=== PATIENT | male | born 1965 | race Caucasian/White ===

== ENCOUNTER 2016-08-05 22:55 | Inpatient (IN) | payer OTHER ==
--- NOTE | ~2016-08-05 | DS ---
Discharge Summary [facility] [address] [place]. [address] NAME: ALLIE BOURGEOIS : 61 STATUS : DIS IN PAT#: [id number] AGE: 51 ADM/REG DATE : 08/06/16 MR#: [id number] REPORT SERV DATE: 08/08/16 DICTATED BY: CHRIS GARCIA DATE: 08/07/16 REPORT STATUS : Draft TRANSCRIBED BY: MODL DATE: 08/07/16 ADMISSION DATE: 08/06/2016 DISCHARGE DATE: 08/07/2016 PRINCIPAL DIAGNOSIS: Hyponatremia due to water intoxication. SECONDARY DIAGNOSES: Hypertension, depression, history of seizure disorder, chronic pain disorder, benzodiazepine dependence. HISTORY OF PRESENT ILLNESS: Please see Dr. Hirsch's dictation 08/06/2016. HOSPITAL COURSE: Admitted with encephalopathy, found to have a sodium of 111 but no seizures. History revealed that the patient drinks 16 ounce water bottles every day while taking hydrochlorothiazide and an SSRI. His urine sodium was less than 10. His urine osmolality was less than 100. This was pathognomonic of water overdose. He was discontinued from the high water concentrations. He was given very low doses of normal saline, taken off hydrochlorothiazide, SSRI, and put on a fluid restriction. His sodium levels actually rapidly came up at approximately 0.5 to 1 millimoles per hour and actually was 131 on the morning of 08/07/2016. The patient felt well. No neurological symptoms. He wished to go home. I felt it was satisfactory to do so. He was released in satisfactory condition with diet as tolerated, activity as tolerated. Discontinue HCTZ and Prozac but continue his other therapies and instructions to drink less water. ANDRE/SUSAN Chris Garcia M.D. / [id number] CC: Adalid Mills
--- NOTE | ~2016-08-05 | HP ---
History And Physical [address] [place]. [address] NAME: ALLIE BOURGEOIS : 61 STATUS : ADM IN PAT#: [id number] AGE: 51 ADM/REG DATE : 08/06/16 MR#: [id number] REPORT SERV DATE: 08/06/16 DICTATED BY: KEYUR EARL DATE: 08/06/16 REPORT STATUS : Draft TRANSCRIBED BY: MODL DATE: 08/06/16 DATE OF ADMISSION: 08/06/2016 CHIEF COMPLAINT: A 51-year-old male, presenting with a primary complaint of abdominal pain, nausea, and decreased appetite, but also a critically low sodium of 111. HISTORY OF PRESENT ILLNESS: The patient's history was obtained through careful interview with the patient and daughter coupled with review of [facility] medical records. The patient for about a week has had a very poor appetite, occasional nausea with poor oral intake; he continues to drink water however. Then, on the evening leading up to admission, he developed increasing nausea and left anterior abdominal discomfort going in his lower quadrant, he describes it as "inside my belly" a sharp quality, up to 6/10 severity. No diarrhea. He has felt cold, but no fevers or chills. No lightheadedness. No confusion. No shortness of breath. No chest pain. No cough. No seizures. He does complain of chronic back pain. On questioning it is clear that patient drinks heavy amounts of mineral water compulsively. He buys cases of water from [employer] or other Supermarkets and will drink copious amount of free water compulsively every day, for example in the last 24 hours it has been confirm that the patient has gone through 16 separate 16 ounce bottles of free water during the 24- hour period of time. REVIEW OF SYSTEMS: Otherwise, a 14-point review of systems was obtained and was negative. PAST MEDICAL HISTORY: 1. COPD. 2. Congestive heart failure. 3. Hypertension. 4. Chronic pain management, on chronic narcotics. 5. Chronic anxiety, on chronic benzodiazepines. 6. A baseline hyponatremia with sodium measured between 125 and 134 in 2015. 7. Quite elevated ESR of 127 in April 2015. 8. T5 compression fracture. 9. Seizure disorder, on Keppra. PAST SURGICAL HISTORY: 1. Bilateral hip avascular necrosis requiring hip replacement. 2. Cholecystectomy. ALLERGIES: TO MORPHINE AND FENTANYL. History And Physical [address] [place]. [address] NAME: ALLIE BOURGEOIS : 61 STATUS : ADM IN PAT#: [id number] AGE: 51 ADM/REG DATE : 08/06/16 MR#: [id number] REPORT SERV DATE: 08/06/16 DICTATED BY: KEYUR EARL DATE: 08/06/16 REPORT STATUS : Draft TRANSCRIBED BY: SUSAN DATE: 08/06/16 SOCIAL HISTORY: Quit smoking. Quit drinking beer. He is . Lives alone. Has two daughters and one son lives in [place], [place]. FAMILY HISTORY: Significant for cancer. CURRENT MEDICATIONS: 1. Keppra 500 mg p.o. b.i.d. 2. Hydrochlorothiazide 25 mg p.o. daily. 3. Klonopin four times a day. 4. Oxycodone 15 mg p.o. four times a day. 5. Prozac. 6. Norvasc. 7. Primidone. 8. Atenolol. 9. Lisinopril. 10.Aspirin. 11.Omeprazole. 12.Multivitamins. PHYSICAL EXAMINATION: VITAL SIGNS: Temperature 97.2, pulse 62, blood pressure 103/57, respiratory rate 16, and O2 saturation 95% on room air. GENERAL: A pleasant, cooperative male, in no evidence of acute distress. HEENT: Pupils equal, round, and reactive to light. No conjunctival pallor. No scleral icterus. Nares are patent. Oropharynx is clear of obstruction. Mildly dry mucous membranes. NECK: Trachea midline. No thyromegaly. LYMPH: No cervical lymphadenopathy. No supraclavicular lymphadenopathy. RESPIRATORY: Clear to auscultation at bases. No wheezes, rales, or rhonchi. Normal respiratory effort. CARDIOVASCULAR: Regular rate and rhythm. No murmurs, rubs, or gallops. No extremity edema is appreciated. ABDOMEN: Despite his abdominal pain complaint, I do not appreciate any abdominal tenderness on examination. Nondistended abdomen. No hepatosplenomegaly. DERMATOLOGICAL: Warm and dry extremities. No pallor. No cyanosis. PSYCHIATRIC: Normal affect. Good mood. Alert and oriented x3. LABORATORY DATA: Sodium 111, potassium 3.3, chloride 72, bicarb 28, BUN 13, creatinine 1.1, and glucose 106. White blood cell count 8, hemoglobin 12, hematocrit 33, and platelets 256. Brain natriuretic peptide 40. Urinalysis negative for infection. History And Physical [address] [facility] [place]. [address] NAME: ALILE BOURGEOIS : 61 STATUS : ADM IN PAT#: [id number] AGE: 51 ADM/REG DATE : 08/06/16 MR#: [id number] REPORT SERV DATE: 08/06/16 DICTATED BY: KEYUR EARL DATE: 08/06/16 REPORT STATUS : Draft TRANSCRIBED BY: SUSAN DATE: 08/06/16 STUDIES: A CT scan of the abdomen and pelvis was read as being negative. ASSESSMENT AND PLAN: 1. Critically low sodium/hyponatremia. There are no neurological signs at this time. There is no history of beer potomania, but the patient does have a history consistent with a compulsive psychogenic polydipsia of free water having consumed for example 16 separate 16 ounce bottles of free water in the last 24 hours. I will check studies for SIADH as well. The patient also gives a history and shows signs of mild dehydration (though not too severe) so we will provide mild IV fluid resuscitation, otherwise place on water restriction now. I would also hold hydrochlorothiazide. 2. Abdominal pain. Negative CT scan of the abdomen. 3. History of extremely elevated ESR. Recheck an ESR. 4. Seizure disorder. Continue Keppra. 5. Chronic pain management. 6. Chronic benzodiazepine dependence. KPL/MODL Keyur Earl M.D. / [id number] CC: Adalid Andrade MD
[~2016-08-05 22:55] MED LIST: *UNABLE1; ADVIL PO; ASA5GR PO; ATEN100 PO; ATROVENTUD INH; DURA25 TOP; FOLIC PO; HYDROCHLOROT25 MG PO; KEPPRA500 PO; KLONO1 PO; LEVAQUIN750 MG PO; P20 PO; PERCOCET1 TA2 PO; PERCOCET1 TA4 PO; POTASSIUM OTC PO; PRILO PO; PRIM50B PO; PRIMIDONE 50 MG PO; PRIN20 PO; PROAIR HFA INH; PROVENTSOL INH; PROZAC PO; ROXICODONE15 MG PO; ROXICODONE30 MG PO; ZESTRIL20 MG PO; ZYP2 PO; [UNRECOGNIZED DRUG - OTHER] PO
[2016-08-05 23:41] LABS: BASOPHILS 0.4 %; BASOPHILS ABSOLUTE 0.03 10/3/uL (0.0-0.16); EOSINOPHILS 3.5 %; EOSINOPHILS ABSOLUTE 0.28 10/3/uL (0.0-0.53); ER CBC TAT 0 Hrs 03 Mins; HEMATOCRIT 33.1 % (40.0-51.0); HEMOGLOBIN 11.9 g/dL (13.6-17.8); IMMATURE GRANULOCYTES 0.1 %; IMMATURE GRANULOCYTES ABSOLUTE 0.01 10/3/uL (0.0-0.11); LYMPHOCYTES 14.9 %; MEAN PLATELET VOLUME 9.7 fL (9.2-13.0); MONOCYTES 8.6 %; MONOCYTES ABSOLUTE 0.69 10/3/uL (0.21-1.20); NEUTROPHILS 72.5 %; NEUTROPHILS ABSOLUTE 5.82 10/3/uL (2.02-8.40); PLATELET COUNT 256 10/3/uL (150-400); RED CELL COUNT 4.04 10/6/uL (4.7-6.1)
[2016-08-05 23:47] LABS: MANUAL DIFF NO %; MEAN CORPUSCULAR HEMOGLOB 29.5 pg (26.0-34.0); MEAN CORPUSCULAR VOLUME 81.9 fL (80-100); RBC DISTRIBUTION WIDTH 12.1 % (12.0-16.0)
[2016-08-05 23:54] LABS: BUN (BLOOD UREA NITROGEN) 13 MG/DL (6-23); CHLORIDE, SERUM 77 MMOL/L (96-112); CO2 (CARBON DIOXIDE) 28 MMOL/L (24-34); GFR AFRICAN AMERICAN 88 ML/MIN (>=60); GFR NON AFRICAN AMERICAN 76 ML/MIN (>=60); GLUCOSE, SERUM 106 MG/DL (60-99); POTASSIUM, SERUM 3.3 MMOL/L (3.5-5.3); SODIUM, SERUM 111 MMOL/L (135-148)
[2016-08-06 01:11] LABS: ALBUMIN 3.8 G/DL (3.5-5.0); ALKALINE PHOSPHATASE 98 U/L (45-117); BUN (BLOOD UREA NITROGEN) 13 MG/DL (6-23); CHLORIDE, SERUM 76 MMOL/L (96-112); CO2 (CARBON DIOXIDE) 28 MMOL/L (24-34); CREATININE 1.15 MG/DL (0.70-1.30); GFR AFRICAN AMERICAN 84 ML/MIN (>=60); GFR NON AFRICAN AMERICAN 72 ML/MIN (>=60); GLOBULIN 3.9 G/DL (2.5-4.1); GLUCOSE, SERUM 116 MG/DL (60-99); POTASSIUM, SERUM 3.1 MMOL/L (3.5-5.3); SGOT(AST) 30 U/L (5-40); SGPT(ALT) 27 U/L (5-65); TOTAL PROTEIN 7.7 G/DL (6.0-8.5)
[2016-08-06 01:12] LABS: SODIUM, SERUM 111 MMOL/L (135-148); TOTAL BILIRUBIN 0.9 MG/DL (0-1.2)
[2016-08-06 01:37] LABS: ASCORBIC ACID (UR NOT ORDER) NEG (NEG); BILIRUBIN, URINE NEGATIVE (NEG); ER URINALYSIS TAT 0 Hrs 00 Mins; KETONE, URINE NEGATIVE (NEG); LEUKOCYTE ESTERASE(NOT OR NEG (NEG); NITRITE (URINE) NEG (NEG); WBC (NOT ORDERED) (RFLEX) < 1 (0-5)
[2016-08-06] MEDS ORDERED: ZYP5 PO (03:44)
[2016-08-06] MEDS ORDERED: PROZAC PO (03:45)
[2016-08-06] MEDS ORDERED: NORV10 PO (03:45)
[2016-08-06] MEDS ORDERED: PRIM50B PO (03:46)
[2016-08-06] MEDS ORDERED: ATEN100 PO (03:47)
[2016-08-06] MEDS ORDERED: ASAB PO (03:47)
[2016-08-06] MEDS ORDERED: [UNRECOGNIZED DRUG - OTHER] (03:47)
[2016-08-06] MEDS ORDERED: ZESTRIL20 MG PO (03:48)
[2016-08-06] MEDS ORDERED: KEPPRA500 PO (03:48)
[2016-08-06] MEDS ORDERED: HYDROCHLOROT25 MG PO (03:49)
[2016-08-06] MEDS ORDERED: PRILO PO (03:49)
[2016-08-06 05:54] LABS: BASOPHILS 0.4 %; BASOPHILS ABSOLUTE 0.03 10/3/uL (0.0-0.16); EOSINOPHILS 4.9 %; EOSINOPHILS ABSOLUTE 0.35 10/3/uL (0.0-0.53); HEMATOCRIT 33.4 % (40.0-51.0); IMMATURE GRANULOCYTES 0.3 %; IMMATURE GRANULOCYTES ABSOLUTE 0.02 10/3/uL (0.0-0.11); LYMPHOCYTES 13.5 %; LYMPHOCYTES ABSOLUTE 0.97 10/3/uL (0.67-4.30); MEAN CORPUS HGB CONC 35.9 g/dL (32.0-36.0); MEAN CORPUSCULAR HEMOGLOB 29.5 pg (26.0-34.0); MEAN CORPUSCULAR VOLUME 82.1 fL (80-100); MEAN PLATELET VOLUME 10.6 fL (9.2-13.0); MONOCYTES 12.2 %; MONOCYTES ABSOLUTE 0.88 10/3/uL (0.21-1.20); NEUTROPHILS 68.7 %; NEUTROPHILS ABSOLUTE 4.96 10/3/uL (2.02-8.40); PLATELET COUNT 248 10/3/uL (150-400); RBC DISTRIBUTION WIDTH 12.4 % (12.0-16.0); RED CELL COUNT 4.07 10/6/uL (4.7-6.1); WHITE BLOOD CELLS 7.2 10/3/uL (4.5-10.5)
[2016-08-06 05:55] LABS: MANUAL DIFF NO %
[2016-08-06 06:24] LABS: A/G RATIO 0.9 (0.7-1.9); ALBUMIN 3.4 G/DL (3.5-5.0); BUN (BLOOD UREA NITROGEN) 11 MG/DL (6-23); CALCIUM, SERUM 8.1 MG/DL (8.5-10.4); CHLORIDE, SERUM 84 MMOL/L (96-112); CO2 (CARBON DIOXIDE) 24 MMOL/L (24-34); GFR AFRICAN AMERICAN 113 ML/MIN (>=60); GFR NON AFRICAN AMERICAN 97 ML/MIN (>=60); GLOBULIN 3.8 G/DL (2.5-4.1); GLUCOSE, SERUM 101 MG/DL (60-99); POTASSIUM, SERUM 3.1 MMOL/L (3.5-5.3); SGOT(AST) 31 U/L (5-40); SGPT(ALT) 24 U/L (5-65); TOTAL PROTEIN 7.2 G/DL (6.0-8.5)
[2016-08-06 06:29] LABS: ALKALINE PHOSPHATASE 86 U/L (45-117); SODIUM, SERUM 117 MMOL/L (135-148); TOTAL BILIRUBIN 0.4 MG/DL (0-1.2); ULTRASENSITIVE TSH 0.852 MCIU/ML (0.358-3.740)
[2016-08-06 06:32] LABS: INTERNATIONAL NORMAL RATI 0.9 UNITS (-); PARTIAL THROMBO TIME 36.5 SEC (22.5-37.2); PROTIME (NOT ORD) 12.5 SEC (12.0-14.5)
[2016-08-06 08:11] LABS: SED RATE 20 MM/HR (0-15)
[2016-08-06 10:45] LABS: BUN (BLOOD UREA NITROGEN) 10 MG/DL (6-23); CHLORIDE, SERUM 89 MMOL/L (96-112); CO2 (CARBON DIOXIDE) 27 MMOL/L (24-34); CREATININE 0.77 MG/DL (0.70-1.30); GFR AFRICAN AMERICAN 120 ML/MIN (>=60); GFR NON AFRICAN AMERICAN 104 ML/MIN (>=60); GLUCOSE, SERUM 110 MG/DL (60-99); SODIUM, SERUM 122 MMOL/L (135-148)
[2016-08-06 12:07] LABS: OSMOLALITY, URINE 102 MOSM/KG (50-1200); SODIUM, URINE 15 MEQ/L
[2016-08-06 18:00] LABS: BUN (BLOOD UREA NITROGEN) 9 MG/DL (6-23); CALCIUM, SERUM 8.5 MG/DL (8.5-10.4); CHLORIDE, SERUM 94 MMOL/L (96-112); CO2 (CARBON DIOXIDE) 29 MMOL/L (24-34); CREATININE 0.87 MG/DL (0.70-1.30); GFR AFRICAN AMERICAN 114 ML/MIN (>=60); GFR NON AFRICAN AMERICAN 99 ML/MIN (>=60); GLUCOSE, SERUM 108 MG/DL (60-99); POTASSIUM, SERUM 4.4 MMOL/L (3.5-5.3); SODIUM, SERUM 127 MMOL/L (135-148)
[2016-08-06 23:23] LABS: BUN (BLOOD UREA NITROGEN) 9 MG/DL (6-23); CALCIUM, SERUM 8.5 MG/DL (8.5-10.4); CHLORIDE, SERUM 97 MMOL/L (96-112); CO2 (CARBON DIOXIDE) 29 MMOL/L (24-34); CREATININE 0.85 MG/DL (0.70-1.30); GFR AFRICAN AMERICAN 115 ML/MIN (>=60); GFR NON AFRICAN AMERICAN 99 ML/MIN (>=60); GLUCOSE, SERUM 100 MG/DL (60-99); POTASSIUM, SERUM 4.7 MMOL/L (3.5-5.3); SODIUM, SERUM 130 MMOL/L (135-148)
[2016-08-07 04:30] LABS: BUN (BLOOD UREA NITROGEN) 9 MG/DL (6-23); CALCIUM, SERUM 8.5 MG/DL (8.5-10.4); CHLORIDE, SERUM 97 MMOL/L (96-112); CO2 (CARBON DIOXIDE) 28 MMOL/L (24-34); CREATININE 0.87 MG/DL (0.70-1.30); GFR AFRICAN AMERICAN 114 ML/MIN (>=60); GFR NON AFRICAN AMERICAN 99 ML/MIN (>=60); POTASSIUM, SERUM 3.8 MMOL/L (3.5-5.3); SODIUM, SERUM 131 MMOL/L (135-148)
[2016-08-07 04:32] LABS: GLUCOSE, SERUM 133 MG/DL (60-99)
== END 2016-08-07 12:25 | disposition home or self-care (01) | DRG 641 ==
LOC: ER 22:55 → IMCU 08-06 02:42
PROVIDERS: Emergency Medicine; Hospitalist; Internal Medicine
DX: E87.79 Other fluid overload (principal); F13.20 Sedative, hypnotic or anxiolytic dependence, uncomplicated; I10 Essential (primary) hypertension; E87.1 Hypo-osmolality and hyponatremia; F32.9 Major depressive disorder, single episode, unspecified; G89.4 Chronic pain syndrome
CPT/HCPCS: 74177; 80048; 80053; 81001; 82150; 82533; 83690; 83735; 83880; 83935; 84300; 84443; 85025; 85610; 85652; 85730; 87040; 87641; 96374; 99285; A9270-GY; J1170; J2405; J3475; Q9967